=== PATIENT | female | born 1970 | race Caucasian/White ===

== ENCOUNTER 2022-04-29 06:45 | Inpatient (IN) | payer SELFPAY ==
[~2022-04-29] VITALS: Ht 170.2 cm; Wt 88.0 kg
[2022-04-29 08:07] LABS: BASO % 0.3 % (0.0-1.0); HEMATOCRIT 35.6 % (36.0-47.0); HEMOGLOBIN 11.1 g/dl (12.0-15.5); LYMPH # 0.4 10^3/uL (1.5-5.0); MEAN CORPUSCULAR HEMOGLOBIN 24.7 pg (27.0-33.0); MEAN CORPUSCULAR HGB CONC 31.2 g/dl (32.0-36.5); MEAN CORPUSCULAR VOLUME 79.3 fl (80.0-96.0); MONO # 0.4 10^3/uL (0.0-0.8); MONO % 4.1 % (2.0-8.0); NEUTROPHILS % 89.8 % (36.0-66.0); PLATELET COUNT, AUTOMATED 272 10^3/uL (150-450); RED BLOOD COUNT 4.49 10^6/uL (4.00-5.40); WHITE BLOOD COUNT 8.9 10^3/uL (4.0-10.0)
[2022-04-29 08:57] LABS: ALT/SGPT 20 U/L (12-78); BILIRUBIN,DIRECT 0.3 MG/DL (0.0-0.2); BILIRUBIN,TOTAL 0.9 MG/DL (0.2-1.0); BLOOD UREA NITROGEN 7 MG/DL (7-18); CALCIUM LEVEL 9.1 MG/DL (8.5-10.1); CARBON DIOXIDE LEVEL 22 MEQ/L (21-32); CHLORIDE LEVEL 98 MEQ/L (98-107); CREATININE FOR GFR 0.83 MG/DL (0.55-1.30); GLOMERULAR FILTRATION RATE > 60.0 (>51); GLUCOSE, FASTING 143 MG/DL (70-100); LIPASE 93 U/L (73-393); POTASSIUM SERUM 4.1 MEQ/L (3.5-5.1); SODIUM LEVEL 131 MEQ/L (136-145); TOTAL PROTEIN 7.6 GM/DL (6.4-8.2)
[2022-04-29] MEDS ORDERED: ONDANSETRON 4MG 2ML VIAL IV ONE (09:35)
[2022-04-29] MEDS ORDERED: NS 1,000 ML IV ONE (09:35)
[2022-04-29] MEDS ORDERED: MORPHINE 4 MG/ML 1ML VIAL/SYRINGE IV ONE ×3 (09:35→15:10)
[2022-04-29] MEDS ORDERED: ISOVUE-370 76% 100ML VIAL As Ordered ONE (09:41)
[2022-04-29] MEDS ORDERED: PIPERACILLIN/TAZOBACTAM SOD 3.375 GM in D5W MINI-BAG PLUS 50 ML IV ONE (12:35)
[2022-04-29 15:14] LABS: RSV AMPLIFICATION NEGATIVE (NEGATIVE)
[2022-04-29] MEDS: NS 1,000 ML IV SCH ×3 (15:17→19:35)
[2022-04-29] MEDS ORDERED: fentaNYL 100 MCG/2 ML INJECTION IV ONE (17:35)
[2022-04-29] MEDS ORDERED: NS 1,000 ML IV SCH (18:00)
[2022-04-29] MEDS ORDERED: PIPERACILLIN/TAZOBACTAM SOD 3.375 GM in D5W MINI-BAG PLUS 50 ML IV SCH (18:30)
[2022-04-29] MEDS ORDERED: HOME MED LIST COMPLETE! XX SCH (19:00)
[2022-04-29] MEDS: KETOROLAC 30 MG/ML 1ML VIAL IV SCH (20:21)
[2022-04-29] MEDS: PIPERACILLIN/TAZOBACTAM SOD 3.375 GM in D5W MINI-BAG PLUS 50 ML IV SCH (20:22)
[2022-04-29 23:20] VITALS: BP 110/68
[2022-04-29] MEDS: MORPHINE 2 MG/ML 1ML VIAL IV PRN (23:39)
[2022-04-29] MEDS: ONDANSETRON 4MG TAB PO PRN (23:40)
[2022-04-30] MEDS: KETOROLAC 30 MG/ML 1ML VIAL IV SCH ×4 (01:40→21:16)
[2022-04-30] MEDS: PIPERACILLIN/TAZOBACTAM SOD 3.375 GM in D5W MINI-BAG PLUS 50 ML IV SCH ×4 (03:17→21:16)
[2022-04-30 04:00] VITALS: BP 110/54
[2022-04-30] MEDS: MORPHINE 2 MG/ML 1ML VIAL IV PRN (05:10)
[2022-04-30 08:20] LABS: BLOOD UREA NITROGEN 8 MG/DL (7-18); CARBON DIOXIDE LEVEL 22 MEQ/L (21-32); CHLORIDE LEVEL 106 MEQ/L (98-107); CREATININE FOR GFR 0.83 MG/DL (0.55-1.30); GLOMERULAR FILTRATION RATE > 60.0 (>51); GLUCOSE, FASTING 103 MG/DL (70-100); POTASSIUM SERUM 3.9 MEQ/L (3.5-5.1); SODIUM LEVEL 138 MEQ/L (136-145)
[2022-04-30 08:23] LABS: HEMATOCRIT 28.8 % (36.0-47.0); MEAN CORPUSCULAR HEMOGLOBIN 25.5 pg (27.0-33.0); MEAN CORPUSCULAR HGB CONC 31.3 g/dl (32.0-36.5); MEAN CORPUSCULAR VOLUME 81.6 fl (80.0-96.0); PLATELET COUNT, AUTOMATED 257 10^3/uL (150-450); RED BLOOD COUNT 3.53 10^6/uL (4.00-5.40); WHITE BLOOD COUNT 6.3 10^3/uL (4.0-10.0)
[2022-04-30] MEDS: NS 1,000 ML IV SCH ×4 (08:23→22:00)
[2022-04-30] MEDS: PANTOPRAZOLE 40MG VIAL IV SCH (08:24)
[2022-04-30 08:30] VITALS: BP 111/53
[2022-04-30 12:15] VITALS: BP 92/55
[2022-04-30 12:25] LABS: HEMATOCRIT 27.6 % (36.0-47.0); HEMOGLOBIN 8.4 g/dl (12.0-15.5)
[2022-04-30 13:14] LABS: APPEARANCE, URINE HAZY (CLEAR); BACTERIA, URINE AUTO NEGATIVE (NEGATIVE); BILIRUBIN, URINE AUTO NEGATIVE (NEGATIVE); BLOOD, URINE BLOOD 1+ (NEGATIVE); COLOR, URINE YELLOW (YELLOW); GLUCOSE, URINE (UA) AUTO NEGATIVE (NEGATIVE); KETONE, URINE AUTO 1+ mg/dL (NEGATIVE); LEUKOCYTE ESTERASE, URINE AUTO NEGATIVE (NEGATIVE); NITRITE, URINE AUTO NEGATIVE (NEGATIVE); PROTEIN, URINE AUTO 1+ mg/dL (NEGATIVE); RBC, URINE AUTO 0 /HPF (0-3); SPECIFIC GRAVITY URINE AUTO 1.015 (1.002-1.035); SQUAMOUS EPITHELIAL CELL UR AU 5 /HPF (0-6); UROBILINOGEN, URINE AUTO 0.2 mg/dL (0.0-2.0); WBC, URINE AUTO 0 /HPF (0-3)
[2022-04-30 13:33] LABS: CA 125 44.1 U/ML (<30.2); CA19-9 TUMOR MARKER,CARBOHYDRA < 1.2 U/ML (<35.0)
[2022-04-30 16:00] VITALS: BP 91/50
[2022-04-30 20:00] VITALS: BP 120/64
[2022-05-01] VITALS (13 sets, daily range): BP systolic 90–150; BP diastolic 54–72; O2SAT 98–99
[2022-05-01] MEDS: KETOROLAC 30 MG/ML 1ML VIAL IV SCH ×4 (01:55→21:01)
[2022-05-01] MEDS: PIPERACILLIN/TAZOBACTAM SOD 3.375 GM in D5W MINI-BAG PLUS 50 ML IV SCH ×4 (02:27→21:29)
[2022-05-01] MEDS: NS 1,000 ML IV SCH ×5 (02:28→21:01)
[2022-05-01] MEDS: MORPHINE 2 MG/ML 1ML VIAL IV PRN ×2 (03:07→07:34)
[2022-05-01 06:44] LABS: HEMATOCRIT 28.8 % (36.0-47.0); HEMOGLOBIN 8.9 g/dl (12.0-15.5); MEAN CORPUSCULAR HEMOGLOBIN 25.4 pg (27.0-33.0); MEAN CORPUSCULAR HGB CONC 30.9 g/dl (32.0-36.5); MEAN CORPUSCULAR VOLUME 82.1 fl (80.0-96.0); PLATELET COUNT, AUTOMATED 242 10^3/uL (150-450); RED BLOOD COUNT 3.51 10^6/uL (4.00-5.40); WHITE BLOOD COUNT 3.4 10^3/uL (4.0-10.0)
[2022-05-01 07:12] LABS: BLOOD UREA NITROGEN 11 MG/DL (7-18); CALCIUM LEVEL 8.2 MG/DL (8.5-10.1); CARBON DIOXIDE LEVEL 24 MEQ/L (21-32); CHLORIDE LEVEL 108 MEQ/L (98-107); CREATININE FOR GFR 0.79 MG/DL (0.55-1.30); GLOMERULAR FILTRATION RATE > 60.0 (>51); GLUCOSE, FASTING 77 MG/DL (70-100); POTASSIUM SERUM 3.5 MEQ/L (3.5-5.1); SODIUM LEVEL 136 MEQ/L (136-145)
[2022-05-01] MEDS ORDERED: ACETAMINOPHEN 500 MG TAB PO ONE (08:00)
[2022-05-01] MEDS: PANTOPRAZOLE 40MG VIAL IV SCH (09:02)
[2022-05-01] MEDS ORDERED: GLUCAGON INJ 1MG VIAL As Ordered ONE (09:26)
[2022-05-01] MEDS ORDERED: BUPIVACAINE LIPOSOME/PF 1.3% 20ML VIAL (13.3MG/ML)(EXPAREL) As Ordered ONE (10:30)
[2022-05-01] MEDS ORDERED: BUPIVACAINE HCL 0.25% 10ML VIAL As Ordered ONE (10:30)
[2022-05-01] MEDS ORDERED: LIDOCAINE 2% 100MG/5ML SDV (FOR ANES.) As Ordered ONE (11:03)
[2022-05-01] MEDS ORDERED: ETOMIDATE INJ 20MG/10ML VIAL As Ordered ONE (11:03)
[2022-05-01] MEDS ORDERED: ROCURONIUM BROMIDE 50 MG/5 ML VIAL As Ordered ONE ×2 (11:03→11:04)
[2022-05-01] MEDS ORDERED: MIDAZOLAM INJ 2MG/2ML VIAL (J2250 PER 1MG) As Ordered ONE (11:03)
[2022-05-01] MEDS ORDERED: SUCCINYLCHOLINE 100 MG/5 ML SYRINGE (J0330) As Ordered ONE (11:03)
[2022-05-01] MEDS ORDERED: fentaNYL 100 MCG/2 ML INJECTION As Ordered ONE (11:03)
[2022-05-01] MEDS ORDERED: propofoL 200 MG/20 ML VIAL As Ordered ONE (11:03)
[2022-05-01] MEDS ORDERED: HYDROmorphone HCL 2MG/ML 1ML VIAL As Ordered ONE (11:06)
[2022-05-01] MEDS ORDERED: dexameTHASONE 4 MG/ML 1ML VIAL (J1100 PER 1MG) As Ordered ONE (11:12)
[2022-05-01] MEDS ORDERED: ONDANSETRON 4MG 2ML VIAL As Ordered ONE (11:12)
[2022-05-01] MEDS ORDERED: SUGAMMADEX SODIUM 500 MG/5 ML VIAL (BRIDION) As Ordered ONE (11:14)
[2022-05-01] MEDS ORDERED: ACETAMINOPHEN 1000MG 100ML IV BTL (OFIRMEV) (J0131 PER 10MG) As Ordered ONE (12:53)
[2022-05-01] MEDS ORDERED: HYDROMORPHONE HCL 0.5 MG/ 0.5 ML SYRINGE (J1170 PER 1) IV PRN (13:20)
[2022-05-01] MEDS ORDERED: LR 1,000 ML IV SCH (13:20)
[2022-05-01] MEDS ORDERED: oxyCODONE 5MG TAB PO PRN (13:20)
[2022-05-01] MEDS ORDERED: ONDANSETRON 4MG 2ML VIAL IV PRN ×2 (13:20→13:40)
[2022-05-01] MEDS ORDERED: EPIDURAL/PCA KEYS XX PRN (13:40)
[2022-05-01] MEDS ORDERED: IPRATROPIUM 0.5MG/ALBUTEROL 2.5MG INH SOL UD 3ML (DUONEB) NEB PRN (13:40)
[2022-05-01] MEDS ORDERED: diphenhydrAMINE 50MG/ML VIAL (J1200) IV PRN (13:40)
[2022-05-01] MEDS ORDERED: NALOXONE INJ 0.4MG/1ML VIAL (J2310 PER 1MG) IV PRN (13:40)
[2022-05-01] MEDS: fentaNYL 100 MCG/2 ML INJECTION IV PRN ×4 (13:50→14:06)
[2022-05-01] MEDS: IPRATROPIUM 0.5MG/ALBUTEROL 2.5MG INH SOL UD 3ML (DUONEB) NEB SCH ×2 (14:00→20:00)
[2022-05-01] MEDS: MORPHINE 1MG/ML IN 0.9% NACL 100ML IV BAG IV PRN (14:25)
[2022-05-02] VITALS (24 sets, daily range): BP systolic 105–129; BP diastolic 56–67; O2SAT 91–98
[2022-05-02] MEDS: IPRATROPIUM 0.5MG/ALBUTEROL 2.5MG INH SOL UD 3ML (DUONEB) NEB SCH ×4 (02:00→20:35)
[2022-05-02] MEDS: NS 1,000 ML IV SCH ×5 (02:18→22:20)
[2022-05-02] MEDS: KETOROLAC 30 MG/ML 1ML VIAL IV SCH ×4 (02:18→21:05)
[2022-05-02] MEDS: PIPERACILLIN/TAZOBACTAM SOD 3.375 GM in D5W MINI-BAG PLUS 50 ML IV SCH ×4 (02:19→21:06)
[2022-05-02 05:01] LABS: HEMOGLOBIN 9.1 g/dl (12.0-15.5); MEAN CORPUSCULAR HEMOGLOBIN 25.1 pg (27.0-33.0); MEAN CORPUSCULAR HGB CONC 30.3 g/dl (32.0-36.5); MEAN CORPUSCULAR VOLUME 82.9 fl (80.0-96.0); PLATELET COUNT, AUTOMATED 305 10^3/uL (150-450); RED BLOOD COUNT 3.62 10^6/uL (4.00-5.40); WHITE BLOOD COUNT 6.6 10^3/uL (4.0-10.0)
[2022-05-02 05:43] LABS: BLOOD UREA NITROGEN 13 MG/DL (7-18); CALCIUM LEVEL 7.7 MG/DL (8.5-10.1); CARBON DIOXIDE LEVEL 21 MEQ/L (21-32); CHLORIDE LEVEL 110 MEQ/L (98-107); CREATININE FOR GFR 0.66 MG/DL (0.55-1.30); GLOMERULAR FILTRATION RATE > 60.0 (>51); GLUCOSE, FASTING 133 MG/DL (70-100); POTASSIUM SERUM 4.4 MEQ/L (3.5-5.1); SODIUM LEVEL 138 MEQ/L (136-145)
[2022-05-02] MEDS: PANTOPRAZOLE 40MG VIAL IV SCH (08:41)
[2022-05-02] MEDS: MORPHINE 1MG/ML IN 0.9% NACL 100ML IV BAG IV PRN (11:10)
[2022-05-03] VITALS (7 sets, daily range): BP systolic 115–150; BP diastolic 70–90; O2SAT 95
[2022-05-03] MEDS: IPRATROPIUM 0.5MG/ALBUTEROL 2.5MG INH SOL UD 3ML (DUONEB) NEB SCH ×4 (01:31→19:08)
[2022-05-03] MEDS: KETOROLAC 30 MG/ML 1ML VIAL IV SCH ×4 (03:03→20:30)
[2022-05-03] MEDS: PIPERACILLIN/TAZOBACTAM SOD 3.375 GM in D5W MINI-BAG PLUS 50 ML IV SCH ×4 (03:03→20:29)
[2022-05-03 05:45] LABS: HEMATOCRIT 25.9 % (36.0-47.0); HEMOGLOBIN 7.9 g/dl (12.0-15.5); MEAN CORPUSCULAR HEMOGLOBIN 24.8 pg (27.0-33.0); MEAN CORPUSCULAR HGB CONC 30.5 g/dl (32.0-36.5); MEAN CORPUSCULAR VOLUME 81.4 fl (80.0-96.0); PLATELET COUNT, AUTOMATED 317 10^3/uL (150-450); RED BLOOD COUNT 3.18 10^6/uL (4.00-5.40); WHITE BLOOD COUNT 6.4 10^3/uL (4.0-10.0)
[2022-05-03 06:18] LABS: BLOOD UREA NITROGEN 10 MG/DL (7-18); CALCIUM LEVEL 7.8 MG/DL (8.5-10.1); CARBON DIOXIDE LEVEL 21 MEQ/L (21-32); CHLORIDE LEVEL 110 MEQ/L (98-107); CREATININE FOR GFR 0.61 MG/DL (0.55-1.30); GLOMERULAR FILTRATION RATE > 60.0 (>51); GLUCOSE, FASTING 84 MG/DL (70-100); POTASSIUM SERUM 3.6 MEQ/L (3.5-5.1); SODIUM LEVEL 138 MEQ/L (136-145)
[2022-05-03] MEDS: PANTOPRAZOLE 40MG VIAL IV SCH (08:54)
[2022-05-03] MEDS: NS 1,000 ML IV SCH ×4 (08:56→20:31)
[2022-05-03 12:30] LABS: HEMATOCRIT 27.8 % (36.0-47.0); HEMOGLOBIN 8.5 g/dl (12.0-15.5)
[2022-05-03] MEDS: MORPHINE 1MG/ML IN 0.9% NACL 100ML IV BAG IV PRN (18:15)
[2022-05-04] MEDS: IPRATROPIUM 0.5MG/ALBUTEROL 2.5MG INH SOL UD 3ML (DUONEB) NEB SCH ×4 (02:00→19:13)
[2022-05-04] MEDS: KETOROLAC 30 MG/ML 1ML VIAL IV SCH ×3 (02:16→14:53)
[2022-05-04] MEDS: PIPERACILLIN/TAZOBACTAM SOD 3.375 GM in D5W MINI-BAG PLUS 50 ML IV SCH ×4 (02:16→20:02)
[2022-05-04 06:00] VITALS: BP 146/87
[2022-05-04 06:28] LABS: HEMATOCRIT 27.7 % (36.0-47.0); HEMOGLOBIN 8.3 g/dl (12.0-15.5); MEAN CORPUSCULAR HEMOGLOBIN 24.3 pg (27.0-33.0); MEAN CORPUSCULAR VOLUME 81.2 fl (80.0-96.0); PLATELET COUNT, AUTOMATED 348 10^3/uL (150-450); RED BLOOD COUNT 3.41 10^6/uL (4.00-5.40); WHITE BLOOD COUNT 5.6 10^3/uL (4.0-10.0)
[2022-05-04 07:01] LABS: BLOOD UREA NITROGEN 8 MG/DL (7-18); CARBON DIOXIDE LEVEL 20 MEQ/L (21-32); CHLORIDE LEVEL 109 MEQ/L (98-107); CREATININE FOR GFR 0.57 MG/DL (0.55-1.30); GLOMERULAR FILTRATION RATE > 60.0 (>51); GLUCOSE, FASTING 74 MG/DL (70-100); POTASSIUM SERUM 3.9 MEQ/L (3.5-5.1); SODIUM LEVEL 136 MEQ/L (136-145)
[2022-05-04] MEDS: NS 1,000 ML IV SCH (09:09)
[2022-05-04] MEDS: PANTOPRAZOLE 40MG VIAL IV SCH (09:26)
[2022-05-04 10:00] VITALS: BP 132/71
[2022-05-04 14:00] VITALS: BP 133/73
[2022-05-04 15:27] VITALS: O2SAT 94
[2022-05-04 18:00] VITALS: BP 145/78
[2022-05-04] MEDS: MORPHINE 1MG/ML IN 0.9% NACL 100ML IV BAG IV PRN (19:38)
[2022-05-05 02:00] VITALS: BP 145/77
[2022-05-05] MEDS: IPRATROPIUM 0.5MG/ALBUTEROL 2.5MG INH SOL UD 3ML (DUONEB) NEB SCH ×4 (02:00→19:27)
[2022-05-05] MEDS: NS 1,000 ML IV SCH ×2 (02:45→09:49)
[2022-05-05] MEDS: PIPERACILLIN/TAZOBACTAM SOD 3.375 GM in D5W MINI-BAG PLUS 50 ML IV SCH ×4 (02:45→21:32)
[2022-05-05 06:18] VITALS: BP 147/81
[2022-05-05 07:06] LABS: HEMOGLOBIN 8.4 g/dl (12.0-15.5); MEAN CORPUSCULAR HGB CONC 31.1 g/dl (32.0-36.5); MEAN CORPUSCULAR VOLUME 80.4 fl (80.0-96.0); PLATELET COUNT, AUTOMATED 387 10^3/uL (150-450); RED BLOOD COUNT 3.36 10^6/uL (4.00-5.40); WHITE BLOOD COUNT 4.8 10^3/uL (4.0-10.0)
[2022-05-05 07:35] LABS: BLOOD UREA NITROGEN 5 MG/DL (7-18); CALCIUM LEVEL 8.3 MG/DL (8.5-10.1); CARBON DIOXIDE LEVEL 21 MEQ/L (21-32); CHLORIDE LEVEL 107 MEQ/L (98-107); GLOMERULAR FILTRATION RATE > 60.0 (>51); GLUCOSE, FASTING 87 MG/DL (70-100); POTASSIUM SERUM 3.4 MEQ/L (3.5-5.1); SODIUM LEVEL 137 MEQ/L (136-145)
[2022-05-05] MEDS ORDERED: MOM 30ML SUSPENSION UDC PO ONE (09:15)
[2022-05-05] MEDS: PANTOPRAZOLE 40MG VIAL IV SCH (09:32)
[2022-05-05] MEDS: POTASSIUM CHLORIDE 10MEQ SR TABLET PO SCH (09:53)
[2022-05-05 14:00] VITALS: BP 137/84
[2022-05-05 16:25] VITALS: O2SAT 93
[2022-05-05] MEDS: MORPHINE 1MG/ML IN 0.9% NACL 100ML IV BAG IV PRN (19:13)
[2022-05-05 22:00] VITALS: BP 151/88
[2022-05-05 22:51] VITALS: O2SAT 93
[2022-05-06] MEDS: NS 1,000 ML IV SCH ×2 (01:48→13:40)
[2022-05-06 02:00] VITALS: BP 148/88
[2022-05-06] MEDS: IPRATROPIUM 0.5MG/ALBUTEROL 2.5MG INH SOL UD 3ML (DUONEB) NEB SCH ×4 (02:21→20:58)
[2022-05-06] MEDS: PIPERACILLIN/TAZOBACTAM SOD 3.375 GM in D5W MINI-BAG PLUS 50 ML IV SCH ×4 (03:50→22:31)
[2022-05-06 05:43] LABS: HEMATOCRIT 26.9 % (36.0-47.0); HEMOGLOBIN 8.2 g/dl (12.0-15.5); MEAN CORPUSCULAR HEMOGLOBIN 24.3 pg (27.0-33.0); MEAN CORPUSCULAR HGB CONC 30.5 g/dl (32.0-36.5); MEAN CORPUSCULAR VOLUME 79.6 fl (80.0-96.0); PLATELET COUNT, AUTOMATED 362 10^3/uL (150-450); RED BLOOD COUNT 3.38 10^6/uL (4.00-5.40); WHITE BLOOD COUNT 4.7 10^3/uL (4.0-10.0)
[2022-05-06 06:00] VITALS: BP 150/87
[2022-05-06 06:20] LABS: BLOOD UREA NITROGEN 4 MG/DL (7-18); CALCIUM LEVEL 8.1 MG/DL (8.5-10.1); CARBON DIOXIDE LEVEL 21 MEQ/L (21-32); CHLORIDE LEVEL 106 MEQ/L (98-107); CREATININE FOR GFR 0.43 MG/DL (0.55-1.30); GLOMERULAR FILTRATION RATE > 60.0 (>51); GLUCOSE, FASTING 100 MG/DL (70-100); SODIUM LEVEL 135 MEQ/L (136-145)
[2022-05-06] MEDS: PANTOPRAZOLE 40MG VIAL IV SCH (09:30)
[2022-05-06] MEDS: POTASSIUM CHLORIDE 10MEQ SR TABLET PO SCH (09:31)
[2022-05-06] MEDS: ALVIMOPAN 12 MG CAPSULE (ENTEREG) PO SCH ×2 (09:31→19:48)
[2022-05-06] MEDS ORDERED: POLYETHYLENE GLYCOL (MIRALAX) 238GM BOTTLE PO ONE (16:55)
[2022-05-06] MEDS: ONDANSETRON 4MG TAB PO PRN (19:54)
[2022-05-06] MEDS: PERCOCET 5MG/325MG TAB PO PRN (19:54)
[2022-05-06 22:52] VITALS: BP 149/86
[2022-05-07 01:57] VITALS: BP 148/88
[2022-05-07] MEDS: IPRATROPIUM 0.5MG/ALBUTEROL 2.5MG INH SOL UD 3ML (DUONEB) NEB SCH ×4 (02:00→19:33)
[2022-05-07] MEDS: ONDANSETRON 4MG TAB PO PRN ×2 (02:52→08:58)
[2022-05-07] MEDS: PIPERACILLIN/TAZOBACTAM SOD 3.375 GM in D5W MINI-BAG PLUS 50 ML IV SCH ×4 (02:52→20:31)
[2022-05-07] MEDS: PERCOCET 5MG/325MG TAB PO PRN ×2 (02:53→08:59)
[2022-05-07] MEDS: NS 1,000 ML IV SCH ×3 (03:00→12:36)
[2022-05-07 03:55] VITALS: O2SAT 93
[2022-05-07 05:38] VITALS: BP 142/84
[2022-05-07] MEDS: POTASSIUM CHLORIDE 10MEQ SR TABLET PO SCH (08:58)
[2022-05-07] MEDS: ALVIMOPAN 12 MG CAPSULE (ENTEREG) PO SCH (08:58)
[2022-05-07] MEDS: PANTOPRAZOLE 40MG VIAL IV SCH (09:05)
[2022-05-07 10:00] VITALS: BP 134/84
[2022-05-07] MEDS: KETOROLAC 30 MG/ML 1ML VIAL IV PRN ×2 (12:01→18:13)
[2022-05-07] MEDS ORDERED: GLUCAGON INJ 1MG VIAL ONE (12:32)
[2022-05-07] MEDS ORDERED: BUPIVACAINE LIPOSOME/PF 1.3% 20ML VIAL (13.3MG/ML)(EXPAREL) ONE (12:32)
[2022-05-07] MEDS ORDERED: BUPIVACAINE HCL 0.25% 10ML VIAL ONE (12:32)
[2022-05-07 14:00] VITALS: BP 134/84
[2022-05-07 20:00] VITALS: BP 121/67
[2022-05-08] VITALS (7 sets, daily range): BP systolic 134–141; BP diastolic 80–85; O2SAT 95
[2022-05-08] MEDS: KETOROLAC 30 MG/ML 1ML VIAL IV PRN ×4 (00:14→21:06)
[2022-05-08] MEDS: IPRATROPIUM 0.5MG/ALBUTEROL 2.5MG INH SOL UD 3ML (DUONEB) NEB SCH ×4 (01:11→20:00)
[2022-05-08] MEDS: PIPERACILLIN/TAZOBACTAM SOD 3.375 GM in D5W MINI-BAG PLUS 50 ML IV SCH ×4 (02:59→21:05)
[2022-05-08 06:28] LABS: BASO % 0.5 % (0.0-1.0); HEMATOCRIT 26.6 % (36.0-47.0); HEMOGLOBIN 8.3 g/dl (12.0-15.5); LYMPH # 0.6 10^3/uL (1.5-5.0); LYMPH % 14.1 % (24.0-44.0); MEAN CORPUSCULAR HEMOGLOBIN 24.7 pg (27.0-33.0); MEAN CORPUSCULAR HGB CONC 31.2 g/dl (32.0-36.5); MEAN CORPUSCULAR VOLUME 79.2 fl (80.0-96.0); MONO # 0.3 10^3/uL (0.0-0.8); MONO % 7.8 % (2.0-8.0); NEUTROPHILS % 73.2 % (36.0-66.0); PLATELET COUNT, AUTOMATED 348 10^3/uL (150-450); RED BLOOD COUNT 3.36 10^6/uL (4.00-5.40); WHITE BLOOD COUNT 4.1 10^3/uL (4.0-10.0)
[2022-05-08 07:03] LABS: BLOOD UREA NITROGEN 3 MG/DL (7-18); C REACTIVE PROTEIN QUANTITATIV 4.67 MG/DL (0.00-0.30); CALCIUM LEVEL 8.4 MG/DL (8.5-10.1); CARBON DIOXIDE LEVEL 26 MEQ/L (21-32); CHLORIDE LEVEL 108 MEQ/L (98-107); CREATININE FOR GFR 0.56 MG/DL (0.55-1.30); GLOMERULAR FILTRATION RATE > 60.0 (>51); GLUCOSE, FASTING 105 MG/DL (70-100); POTASSIUM SERUM 4.3 MEQ/L (3.5-5.1); SODIUM LEVEL 139 MEQ/L (136-145)
[2022-05-08] MEDS: PANTOPRAZOLE 40MG VIAL IV SCH (09:21)
[2022-05-08] MEDS: NS 1,000 ML IV SCH (13:31)
[2022-05-09] MEDS: IPRATROPIUM 0.5MG/ALBUTEROL 2.5MG INH SOL UD 3ML (DUONEB) NEB SCH ×4 (01:23→20:20)
[2022-05-09] MEDS: PIPERACILLIN/TAZOBACTAM SOD 3.375 GM in D5W MINI-BAG PLUS 50 ML IV SCH ×4 (02:08→20:41)
[2022-05-09] MEDS: ONDANSETRON 4MG TAB PO PRN ×2 (02:11→10:19)
[2022-05-09] MEDS: PERCOCET 5MG/325MG TAB PO PRN ×2 (02:11→10:20)
[2022-05-09] MEDS: KETOROLAC 30 MG/ML 1ML VIAL IV PRN ×3 (05:36→20:42)
[2022-05-09 06:00] VITALS: BP 128/75
[2022-05-09] MEDS: PANTOPRAZOLE 40MG VIAL IV SCH (09:10)
[2022-05-09] MEDS: NS 1,000 ML IV SCH (10:08)
[2022-05-09 10:21] VITALS: O2SAT 94
[2022-05-09 14:00] VITALS: BP 129/75
[2022-05-09 22:00] VITALS: BP 129/74
[2022-05-09 23:11] VITALS: O2SAT 92
[2022-05-10] MEDS: IPRATROPIUM 0.5MG/ALBUTEROL 2.5MG INH SOL UD 3ML (DUONEB) NEB SCH ×4 (01:18→19:19)
[2022-05-10] MEDS: ONDANSETRON 4MG TAB PO PRN ×3 (01:37→21:50)
[2022-05-10] MEDS: PERCOCET 5MG/325MG TAB PO PRN ×3 (01:38→21:51)
[2022-05-10 02:00] VITALS: BP 139/82
[2022-05-10] MEDS: PIPERACILLIN/TAZOBACTAM SOD 3.375 GM in D5W MINI-BAG PLUS 50 ML IV SCH ×2 (05:29→09:10)
[2022-05-10] MEDS: NS 1,000 ML IV SCH (05:30)
[2022-05-10 06:00] VITALS: BP 132/74
[2022-05-10] MEDS: PANTOPRAZOLE 40MG VIAL IV SCH (09:10)
[2022-05-10] MEDS: KETOROLAC 30 MG/ML 1ML VIAL IV PRN (09:10)
[2022-05-10 10:00] VITALS: BP 130/76
[2022-05-10 14:00] VITALS: BP 139/78
[2022-05-10] MEDS: metroNIDAZOLE (FLAGYL) 500MG TABLET PO SCH ×2 (16:46→21:50)
[2022-05-10] MEDS: CIPROFLOXACIN 500MG TABLET PO SCH (17:22)
[2022-05-10 18:00] VITALS: BP 143/87
[2022-05-10 21:25] VITALS: BP 125/68
[2022-05-11 02:00] VITALS: BP 111/70
[2022-05-11] MEDS: IPRATROPIUM 0.5MG/ALBUTEROL 2.5MG INH SOL UD 3ML (DUONEB) NEB SCH ×2 (02:00→07:12)
[2022-05-11] MEDS: ONDANSETRON 4MG TAB PO PRN (05:33)
[2022-05-11] MEDS: CIPROFLOXACIN 500MG TABLET PO SCH (05:34)
[2022-05-11] MEDS: PERCOCET 5MG/325MG TAB PO PRN (05:34)
[2022-05-11 05:50] VITALS: BP 117/72
[2022-05-11] MEDS: metroNIDAZOLE (FLAGYL) 500MG TABLET PO SCH (09:32)
[2022-05-11] MEDS: PANTOPRAZOLE 40MG VIAL IV SCH (09:32)
[2022-05-11 10:00] VITALS: BP 118/72
[2022-05-11] MEDS ORDERED: PERCOCET PO (10:32)
[2022-05-11] MEDS ORDERED: CIPR-249 PO (10:32)
[2022-05-11] MEDS ORDERED: METR-265 PO (10:32)
== END 2022-05-11 12:41 | disposition home or self-care (01) | DRG 221 ==
LOC: M ED 06:45 → M ED INP 19:32 → ENRESERV 22:37 → M PED 23:22 → M PCU 05-01 14:35 → M MSPAV 05-03 03:23
PROVIDERS: ADMIT Surgery; ATTEND Surgery
PROC: 0DBN0ZZ Excision of Sigmoid Colon, Open Approach (ICD-10-PCS; principal; 2022-05-01 08:39)
DX: K63.1 Perforation of intestine (nontraumatic) (principal); E66.9 Obesity, unspecified; B95.8 Unspecified staphylococcus as the cause of diseases classified elsewhere; N94.89 Other specified conditions associated with female genital organs and menstrual cycle; Z20.822 Contact with and (suspected) exposure to COVID-19; Z79.899 Other long term (current) drug therapy; N83.201 Unspecified ovarian cyst, right side; K56.7 Ileus, unspecified

== ENCOUNTER → 2022-06-07 | Outpatient (CLI) | payer MEDICAID ==
[~2022-06-07] MED LIST: CIPR-249 PO; METR-265 PO; PERCOCET PO
== END ==
LOC: M WHC 13:52
PROVIDERS: ATTEND Obstetrics & Gynecology
DX: Z12.31 Encounter for screening mammogram for malignant neoplasm of breast (principal); R92.2 Inconclusive mammogram; R19.04 Left lower quadrant abdominal swelling, mass and lump; N85.2 Hypertrophy of uterus; R93.89 Abnormal findings on diagnostic imaging of other specified body structures

== ENCOUNTER → 2023-08-19 | Outpatient (CLI) | payer OTHER ==
[~2023-08-19] MED LIST changes: +D 50CAP2 PO; +IBUP200C25 PO; +IRON240T PO; +PROB250C PO; +THERTAB52 PO
== END ==
LOC: M RAD 08:35
PROVIDERS: ATTEND Anesthesiology
DX: K57.92 Diverticulitis of intestine, part unspecified, without perforation or abscess without bleeding (principal)

== ENCOUNTER 2023-08-22 12:00 | Inpatient (IN) | payer OTHER ==
[~2023-08-22] VITALS: Ht 170.2 cm; Wt 104.4 kg
[~2023-08-22 12:00] MED LIST changes: +KETOROLAC 60MG 2ML VIAL As Ordered ONE; +LIDOCAINE 2% 100MG/5ML SDV (FOR ANES.) As Ordered ONE; +MIDAZOLAM INJ 2MG/2ML VIAL As Ordered ONE; +ONDANSETRON 4MG 2ML VIAL As Ordered ONE; +ROCURONIUM BROMIDE 50MG/5ML VIAL As Ordered ONE; +SUGAMMADEX SODIUM 500 MG/5 ML VIAL (BRIDION) As Ordered ONE; +ceFAZolin SOD 2 GM in IV 1 EA IV ONE; +fentaNYL 100 MCG/2 ML INJECTION As Ordered ONE; +propofoL 200 MG/20 ML VIAL As Ordered ONE
[2023-08-22] MEDS ORDERED: LR 1,000 ML IV SCH ×2 (12:45→18:50)
[2023-08-22 12:59] LABS: HEMATOCRIT 38.9 % (36.0-47.0); HEMOGLOBIN 12.7 g/dl (12.0-15.5); MEAN CORPUSCULAR HGB CONC 32.6 g/dl (32.0-36.5); MEAN CORPUSCULAR VOLUME 82.6 fl (80.0-96.0); PLATELET COUNT, AUTOMATED 235 10^3/uL (150-450); RED BLOOD COUNT 4.71 10^6/uL (4.00-5.40); WHITE BLOOD COUNT 7.4 10^3/uL (4.0-10.0)
[2023-08-22] MEDS ORDERED: ACETAMINOPHEN 1000MG 100ML IV BAG As Ordered ONE (14:02)
[2023-08-22] MEDS ORDERED: ROCURONIUM BROMIDE 50MG/5ML VIAL As Ordered ONE ×2 (15:52→16:29)
[2023-08-22] MEDS ORDERED: propofoL 200 MG/20 ML VIAL As Ordered ONE (15:52)
[2023-08-22] MEDS ORDERED: HYDROmorphone HCL 2MG/ML 1ML VIAL As Ordered ONE (15:54)
[2023-08-22] MEDS ORDERED: HYDROMORPHONE HCL 0.5 MG/ 0.5 ML SYRINGE IV PRN (18:50)
[2023-08-22] MEDS ORDERED: NALBUPHINE HCL 1MG/0.1ML (100MG/10ML) MDV IV PRN (18:50)
[2023-08-22] MEDS ORDERED: ONDANSETRON 4MG 2ML VIAL IV PRN (18:50)
[2023-08-22] MEDS ORDERED: oxyCODONE 5MG TAB PO PRN (18:50)
[2023-08-22] MEDS ORDERED: METOCLOPRAMIDE INJ 10MG/2ML VIAL IV PRN (18:50)
[2023-08-22] MEDS ORDERED: MEPERIDINE 25 MG/ML 1ML VIAL IV PRN (18:50)
[2023-08-22] MEDS ORDERED: fentaNYL 100 MCG/2 ML INJECTION As Ordered ONE ×2 (18:52→18:56)
[2023-08-22] MEDS ORDERED: diphenhydrAMINE 50MG/ML VIAL As Ordered ONE (19:02)
[2023-08-22] MEDS: LR 1,000 ML IV SCH (19:10)
[2023-08-22] MEDS ORDERED: ceFAZolin SOD 2 GM in IV 1 EA IV ONE (19:15)
[2023-08-22] MEDS: fentaNYL 100 MCG/2 ML INJECTION IV PRN ×4 (19:32→19:56)
[2023-08-22] MEDS: KETOROLAC 30 MG/ML 1ML VIAL IV PRN ×2 (19:39→23:52)
[2023-08-22 20:30] VITALS: BP 160/95; TEMP 96.7; O2SAT 99
[2023-08-22 21:00] VITALS: BP 181/82; TEMP 96.4; O2SAT 99
[2023-08-22 22:00] VITALS: BP 162/82; TEMP 96.6; O2SAT 99
[2023-08-22] MEDS: DOCUSATE SODIUM 100MG CAPSULE PO SCH (22:40)
[2023-08-22] MEDS: ONDANSETRON 4MG 2ML VIAL IV PRN (22:41)
[2023-08-22] MEDS: PERCOCET 5MG/325MG TAB PO PRN (22:41)
[2023-08-22 23:00] VITALS: BP 151/86; TEMP 96.5; O2SAT 98
[2023-08-23] VITALS (7 sets, daily range): BP systolic 132–159; BP diastolic 73–88; TEMP 96.2–98.7; O2SAT 97–99
[2023-08-23] MEDS: LR 1,000 ML IV SCH (04:11)
[2023-08-23] MEDS: PERCOCET 5MG/325MG TAB PO PRN ×5 (04:12→21:20)
[2023-08-23] MEDS: KETOROLAC 30 MG/ML 1ML VIAL IV PRN (06:10)
[2023-08-23 07:41] LABS: HEMATOCRIT 29.2 % (36.0-47.0); MEAN CORPUSCULAR HEMOGLOBIN 26.9 pg (27.0-33.0); MEAN CORPUSCULAR HGB CONC 32.5 g/dl (32.0-36.5); MEAN CORPUSCULAR VOLUME 82.7 fl (80.0-96.0); PLATELET COUNT, AUTOMATED 189 10^3/uL (150-450); RED BLOOD COUNT 3.53 10^6/uL (4.00-5.40); WHITE BLOOD COUNT 7.9 10^3/uL (4.0-10.0)
[2023-08-23 07:52] LABS: ALBUMIN 3.1 G/DL (3.2-5.2); ALKALINE PHOSPHATASE 36 U/L (46-116); ALT/SGPT 20 U/L (7.0-40); AST/SGOT 17 U/L (<34); BILIRUBIN,TOTAL 0.7 MG/DL (0.3-1.2); BLOOD UREA NITROGEN 11 MG/DL (9-23); CALCIUM LEVEL 8.7 MG/DL (8.5-10.1); CARBON DIOXIDE LEVEL 24 MMOL/L (20-31); CHLORIDE LEVEL 104 MMOL/L (98-107); CREATININE FOR GFR 0.63 MG/DL (0.55-1.30); GLOMERULAR FILTRATION RATE > 60.0 (>51); GLUCOSE, FASTING 127 MG/DL (60-100); POTASSIUM SERUM 4.1 MMOL/L (3.5-5.1); SODIUM LEVEL 137 MMOL/L (136-145)
[2023-08-23 07:54] LABS: HEMOGLOBIN 9.5 g/dl (12.0-15.5)
[2023-08-23] MEDS: ONDANSETRON 4MG 2ML VIAL IV PRN ×2 (08:19→13:59)
[2023-08-23] MEDS: DOCUSATE SODIUM 100MG CAPSULE PO SCH ×2 (08:22→21:20)
[2023-08-23] MEDS: IBUPROFEN 800 MG TAB PO SCH ×2 (12:51→19:32)
[2023-08-23] MEDS: SIMETHICONE 80MG CHEW TAB PO PRN (13:03)
[2023-08-23] MEDS: ONDANSETRON 4MG ORAL DISINTEGRATING TAB PO PRN (21:19)
[2023-08-24] MEDS: PERCOCET 5MG/325MG TAB PO PRN ×2 (01:22→08:59)
[2023-08-24 02:00] VITALS: BP 128/73; TEMP 98.4; O2SAT 95
[2023-08-24] MEDS: IBUPROFEN 800 MG TAB PO SCH (03:49)
[2023-08-24 06:00] VITALS: BP 140/77; TEMP 97.2; O2SAT 96
[2023-08-24] MEDS: ONDANSETRON 4MG ORAL DISINTEGRATING TAB PO PRN (08:57)
[2023-08-24] MEDS: DOCUSATE SODIUM 100MG CAPSULE PO SCH (08:57)
[2023-08-24] MEDS: SIMETHICONE 80MG CHEW TAB PO PRN (08:57)
[2023-08-24 10:00] VITALS: BP 154/72; TEMP 97.5; O2SAT 98
[2023-08-24] MEDS ORDERED: OXYC1TAB23 PO (10:33)
[2023-08-24] MEDS ORDERED: IBUP80TA PO (10:33)
[2023-08-24] MEDS ORDERED: ONDA-83 PO (10:34)
== END 2023-08-24 11:45 | disposition home or self-care (01) | DRG 519 ==
LOC: M SDC 12:00 → M RR INP 19:09 → M OBS 20:20
PROVIDERS: ADMIT Specialist; ATTEND Specialist
PROC: 0UT20ZZ Resection of Bilateral Ovaries, Open Approach (ICD-10-PCS; 2023-08-22)
PROC: 0UT70ZZ Resection of Bilateral Fallopian Tubes, Open Approach (ICD-10-PCS; 2023-08-22)
PROC: 0UTC0ZZ Resection of Cervix, Open Approach (ICD-10-PCS; 2023-08-22)
PROC: 0UT90ZZ Resection of Uterus, Open Approach (ICD-10-PCS; principal; 2023-08-22 13:55)
DX: D25.9 Leiomyoma of uterus, unspecified (principal)